=== PATIENT | male | born 1980 | race African-American/Black ===

== ENCOUNTER 2017-07-15 04:55 | Emergency (ER) | payer OTHER ==
[~2017-07-15] VITALS: Ht 175.3 cm; Wt 76.2 kg
[2017-07-15 05:13] VITALS: BP 142/87
[2017-07-15] MEDS ORDERED: KETOROLAC TROMETH 60MG/2ML VIAL IM ONE (07:15)
== END 2017-07-15 07:32 | disposition home or self-care (01) ==
LOC: ER 05:09
DX: S16.1XXA Strain of muscle, fascia and tendon at neck level, initial encounter (principal); S00.03XA Contusion of scalp, initial encounter; W18.39XA Other fall on same level, initial encounter; Y93.89 Activity, other specified; Y92.89 Other specified places as the place of occurrence of the external cause; Y99.8 Other external cause status
CPT/HCPCS: 70450; 72040; 96372; 99284; J1885

== ENCOUNTER 2018-03-15 09:37 | Emergency (ER) | payer OTHER ==
[~2018-03-15] VITALS: Ht 175.3 cm; Wt 72.6 kg
[2018-03-15 09:42] VITALS: BP 126/81
[2018-03-15] MEDS ORDERED: cefTRIAXone SOD 1,000 MG VL ONE (10:12)
[2018-03-15] MEDS ORDERED: LIDOCAINE 1% HCL (LOCAL ANESTH.) INJ 20ML MDV IJ ONE (10:15)
[2018-03-15] MEDS ORDERED: KETOROLAC TROMETH 60MG/2ML VIAL IM ONE (10:15)
[2018-03-15] MEDS ORDERED: cefTRIAXone SOD 1,000 MG VL IM ONE (10:15)
[2018-03-15] MEDS ORDERED: cefTRIAXone W LIDOCAINE 1 GM IM IM ONE (10:15)
[2018-03-15] MEDS ORDERED: LIDOCAINE 1%HCL (LOCAL ANESTH) 10 ML MDV ONE (10:16)
== END 2018-03-15 10:54 | disposition home or self-care (01) ==
LOC: ER 09:38
DX: K04.7 Periapical abscess without sinus (principal)
CPT/HCPCS: 96372; 99284; J0696; J1885; J2001

== ENCOUNTER 2018-03-18 17:57 | Emergency (ER) | payer OTHER ==
[~2018-03-18] VITALS: Ht 175.3 cm; Wt 73.9 kg
[2018-03-18 18:15] VITALS: BP 117/93
[2018-03-18] MEDS ORDERED: cefTRIAXone SOD 1,000 MG VL IM ONE (21:00)
[2018-03-18] MEDS ORDERED: KETOROLAC TROMETH 60MG/2ML VIAL IM ONE (21:00)
== END 2018-03-18 21:11 | disposition home or self-care (01) ==
LOC: ER 17:57
DX: L03.211 Cellulitis of face (principal)
CPT/HCPCS: 70486; 96372; 99284; J0696; J1885

== ENCOUNTER 2018-04-01 17:45 | Emergency (ER) | payer OTHER ==
[~2018-04-01] VITALS: Ht 175.3 cm; Wt 73.5 kg
[2018-04-01 17:50] VITALS: BP 122/69
== END 2018-04-01 19:21 | disposition home or self-care (01) ==
LOC: ER 17:45
DX: K04.7 Periapical abscess without sinus (principal)